=== PATIENT | male | born 2000 | race Caucasian/White ===

== ENCOUNTER 2018-12-12 00:22 | Emergency (ER) | payer BC ==
[2018-12-12] MEDS ORDERED: LORazepam 1 MG TAB PO ONE ×2 (01:09→14:47)
--- NOTE | 2018-12-12 01:09 | EDPHY ---
H & P Stated Complaint: M1 Source: Patient, Family Exam Limitations: Clinical condition - Personal History Current Tetanus Diphtheria and Acellular Pertussis (TDAP): Yes - Medical/Surgical History Hx Asthma: No Hx Chronic Respiratory Disease: No Hx Diabetes: No Hx Cardiac Disease: No Hx Renal Disease: No Hx Cirrhosis: No Hx Alcoholism: No Hx HIV/AIDS: No Hx Splenectomy or Spleen Trauma: No Other PMH: depression - Social History Smoking Status: Never smoked Time Seen by Provider: 12/12/18 00:31 HPI/ROS: HPI: This is a 17-year-old male who presents with Chief Complaint: Depression, paranoia, delusions Location: psych Quality: Depression, paranoia, delusions Duration: Unknown Signs and Symptoms: no auditory hallucinations, + visual hallucinations, no suicidal ideation with a plan, no homicidal ideation, + paranoia Timing: Acute on chronic Severity: Moderate to severe Context: Patient has a history of depression, attention deficit hyperactivity disorder, takes Vyvanse, presents accompanied by his friends who are concerned with patient's erratic behavior. Patient drove down from [place] to [place] and stayed with his friends yesterday evening. He reports that he has not slept in "sometime." He endorses racing thoughts, paranoia, visual hallucination of people chasing him with guns. He reports that he has acromion allergy major and understands "help people work." His father is a physician. He reports that he was depressed in high school as a sophomore and "spent some time in a mental health hospital." Patient reports that he has difficulty forming his thoughts and expressing them. He feels very paranoid. He is very self critical of himself. He is not doing well in college. Modifying Factors: None Comment: ROS: A comprehensive 10 system review of systems is otherwise negative aside from elements mentioned in the history of present illness. MEDICAL/SURGICAL/SOCIAL HISTORY: Medical history: Depression, attention deficit hyperactivity disorder Surgical history: Denies Social history: Student at [employer]. Drinks alcohol socially. Uses marijuana. Family history noncontributory. CONSTITUTIONAL: Well-developed, well-nourished, teenage white male, awake and alert, no obvious distress HEENT: Atraumatic and normocephalic, PERRL, EOMI. Nares patent; no rhinorrhea; no nasal mucosal edema. Tympanic membranes clear. Oropharynx clear, no exudate and moist pink mucosa. Airway patent. No lymphadenopathy. No meningismus. Cardiovascular: Normal S1/S2, regular rate, regular rhythm, without murmur rub or gallop. PULMONARY/CHEST: Symmetrical and nontender. Clear to auscultation bilaterally. Good air movement. No accessory muscle usage. ABDOMEN: Soft, nondistended, nontender, no rebound, no guarding, no peritoneal signs, no masses or organomegaly. No CVAT. EXTREMITIES: 2/2 pulses, strength 5/5, no deformities, no clubbing, no cyanosis or edema. NEUROLOGICAL: no focal neuro deficits. GCS 15. Pressured speech. SKIN: Warm and dry, no erythema. no rash. Good capillary refill. PSYCH: Poor eye contact, + flight of ideas, tangential disorganized thought process, fair insight and judgment, no auditory hallucinations, + visual hallucinations, no suicidal ideation with a plan, no homicidal ideation, + paranoia (Brenda Salguero) Constitutional: Initial Vital Signs Temperature (C) 37.2 C 12/12/18 00:31 Heart Rate 72 12/12/18 00:31 Respiratory Rate 16 12/12/18 00:31 Blood Pressure 155/81 H 12/12/18 00:31 O2 Sat (%) 98 12/12/18 00:31 O2 Delivery Mode Room Air Allergies/Adverse Reactions: No Known Allergies Allergy (Unverified 12/12/18 00:31) Home Medications: Medication Instructions Recorded Zoloft 12/12/18 Medical Decision Making ED Course/Re-evaluation: Vital signs reviewed and stable upon arrival. Agree with M1 hold as patient is gravely disabled. Patient is presenting with delusions and hallucinations. Concern for psychosis versus manic episode bipolar disorder versus new diagnosis of schizoaffective disorder. Labs and UDS ordered. Given p.o. Ativan 1 mg. 0120: End of shift. Signed over to Dr. Bagley pending medical clearance, mental health evaluation and final disposition. This patient was seen under the supervision of my secondary supervising physician. I evaluated care for this patient with attending. Discussed this patient with Dr. Bagley. (Brenda Salguero) Differential Diagnosis: Differential diagnosis includes but is not limited to major depression, anxiety disorder, schizophrenia, bipolar disorder, intoxicant use, suicidal ideation, psychosis, poppy. (Brenda Salguero) Other Provider: 0125 Care assumed from KWESI Salguero pending mental health evaluation. [address] Wong pending mental health evaluation. No issues during my care this patient overnight. (Owen Bagley) 7:00 a.m.-I assumed care of this patient at shift change. He is on an M1 hold for acute poppy. Plan for mental health evaluation this morning. 11:00 a.m.-seen by mental health and felt appropriate for inpatient mental health placement for manic episode. 1450: accepted to [facility] by Dr. Graham. EMTALA completed by me. (Roxann Wong) - Data Points Laboratory Results: Laboratory Results 12/12/18 00:38 12/12/18 00:38 Medications Given: Discontinued Medications Lorazepam (Ativan) 1 mg PO EDNOW ONE Stop: 12/12/18 01:10 Last Admin: 12/12/18 01:19 Dose: 1 mg Departure - Departure Clinical Impression: Delusions, Paranoia (psychosis) Condition: Fair Referrals: JAVIER HUBER [Other] - As per Instructions
[2018-12-12 01:15] LABS: PLATELET COUNT 190 10^3/uL (150-400)
--- NOTE | 2018-12-12 13:03 | ASMTTLCEVL ---
TLC Evaluation - Basic Information Evaluation Start Date and 12/12/2018 10:00 AM Time Hospital Status Answers: M1 Hold 72-hr M1 Hold Start Date 12/12/2018 12:01 PM and Time Patient statement Notes: My friends got scared so they called police. When asked why friends were scared pt stated that he opened up and my friends arent used to that. Xin only slept for about 2 hours over the past 4-5 days." Narrative Notes: Pt is a 17 year old, single, male who presented with a hx of depression, ADHD accompanied with his friends who were concerned with pt.s erratic behavior. Pt drove down from [place] to [place] and stayed with friend yesterday evening. Pt had reported he has not slept in sometime. Pt had endorsed racing thoughts, paranoia, and visual hallucinations of people chasing him with guns. Pt had reported he started experiencing depression in high school as a sophomore and spent some time in a mental health hospital. Per ED report pt appeared paranoid, self-critical and had reported he is not doing well in college. Per ED report pt. presented with poor eye contact, flight of ideas, tangential, disorganized thought process, fair insight and judgment, no auditory hallucinations, positive visual hallucinations, no SI, no HI but paranoid. Pt was placed on a M1 hold by ED Physician due to symptoms of psychosis. Pts utox was positive for Amphetamines, (pt is prescribed Vyvanse) and marijuana. He BAL was less than 1. Father reported pt is a [employer] student who is currently on academic probation. Pt has a hx of depression and anxiety starting around the age of 12 resulting in a hospitalization at [facility] in [facility]. Pt has been prescribed Vyvanse and Zoloft. Pt has not been compliant with taking his Zoloft and sporadically was taking his Vyvanse but pt reported over the past few weeks he has been taking Vyvanse on a daily basis as prescribed. Father reported pt appeared to be doing fine over winter break when he returned home. He did seem a little hyped but no significant problems were observed. Pt was set up with a therapist at upon his return and was seen by his jail Psychiatrist in [facility], Dr Cooper Smith before his return to college in mid-October. Father reported they had spoken with pt on Saturday of this week and were concerned about his communication. Pt had a test scheduled on but instead of taking the test he drove to [place] to see his friends. Last night when father saw pt in the ED he was observed as expressing rambling thoughts, varied mood, and irrational thoughts. Pt had reported last semester at [employer] he was using marijuana on a daily basis. Diagnosis History Notes: Pt was diagnosed with depression and anxiety at the age of 12. Prior suicide attempts Notes: Pt denied any prior suicide attempts. Prior hospitalizations Notes: Pt was hospitalized for 7-10 days at the age of 12 for depression and SI Treatment Responses Notes: Pt stated he did not feel the Zoloft medication was of any benefit to his symptoms. History of violence Notes: Pt has no hx of reported violence. Therapist: New therapist at [employer] seen 2 times this semester Psychiatrist: Pt has been seeing Psychiatrist Dr Cooper Smith since his teens. Pt was last seen by Psychiatrist in Oct. prior to returning to [employer] Medications (name, dosage, route, freq uency) Notes: Pt is prescribed 40 mg of Vyvanse daily. He had also been prescribed Zoloft in the past but pt stopped taking Zoloft since he did not feel this medication was helping him. Allergies/Reaction Notes: No known allergies. Sleep Notes: Pt reported he has not slept more than 2-3 hours over the past 4-5 nights. Appetite Notes: Pt reported with taking Vyvanse it has reduced his appetite. Pt is not aware of any weight loss. Medical/Surgical history Notes: No report of any medical concerns were reported. Substance use history (frequency, intensity, his tory, duration) Notes: Pt reported he tried marijuana for the 1st time at age 12. He had his 1st drink at the age of 14. Pt denied a regular pattern of problematic drinking reporting he only drinks a few drinks per drinking occasion about 1 day a week. Pt stated he started using marijuana on a daily basis last semester. The past few months he has been using marijuana a few times a week. Pt denied any hx of other drug use. Family composition Notes: Pt has a 15 year old sister who lives with his parents in [facility]. Need for family Answers: Yes participation in patient's care Family psychiatric/substance abuse history Notes: There is a family hx of schizophrenia, a maternal great aunt. It was also reported pt.s mother struggled with bulimia earlier in her life along with depression and anxiety. 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 There was no report of any hx of concussions. Pt was not diagnosed with ADD until after high school. Abuse concerns Answers: None Marital status/children Notes: Pt is single with no children. Living situation Notes: Pt lives with a roommate in an apt off campus of [employer] [facility]. Sexual history/orientation Notes: Pt identifies as a heterosexual. Peer support/family strengths Notes: Pt was described as a social kid who has a lot of friends. He has several friends from his high school who are attending in [place]. Education level/history Notes: Pt is a sophomore at [employer] who has been placed on academic probation. Work history Notes: Pt has always worked since high school and on breaks. 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 Notes: No hx Legal Notes: Pt gave no hx of legal problems Latter-Day/Spiritual Notes: Pt was raised as a Restorationism but does not regularly participate in formal activities. Leisure Notes: Pt is physically active and was involved in a variety of sports throughout high school. He played golf, basketball and baseball throughout high school. Collateral Notes: Collateral inform was obtained from pt.'s father. See narrative above. Father was in agreement due to concerns of pt.'s behavior and decline in [facility] Patient's strengths Answers: Athletic (Please select at least TWO strengths): Good Friend to Others Intelligent Supportive Family Willingness TLC Evaluation - Mental Status Exam Appearance: Answers: Appropriate Eye Contact: Answers: Intermittent Mood: Answers: Euthymic Affect: Answers: Apathetic Apprehensive Congruent w/ Mood Indifferent Subdued Behavior: Answers: Cooperative Fatigued Impulsive Speech: Answers: Clear Coherent Thought Process: Answers: Oriented Racing Thoughts Insight: Answers: Fair Judgement: Answers: Poor Manic Signs/Symptoms Answers: Distractibility Euphoria Grandiosity Impulsivity Mood Swings Racing Thoughts Depression Answers: Difficulty Concentrating Signs/Symptoms: Diminished Interest Psychomotor Agitation Hallucinations: Answers: Visual Current Stage of Change Answers: Precontemplation Pt reported to have Answers: No suicidal/self-injuring ideation/behavior? Pt reported to be making Answers: No suicidal/self-injuring threats? Pt reported to have Answers: No aggression/assault ideation/behavior? Pt reported to be making Answers: No aggression/assault threats? Pt exhibits inability to Answers: Yes care for self/grave disability? History of Answers: Yes suicidal/self-injuring ideation, behavior, or threats? History of Answers: No aggressive/assaultive ideation, behavior, or threats? History of serious Answers: No physical harm to self/others while in treatment setting? TLC Evaluation - Suicide/Homicide Risk Suicide Risk Factors: Answers: < 20 or > 40 Years of Age Bipolar Disorder Calm After Agitated Depression Global Insomnia Impulsivity Rapid Mood Shifts School Difficulties None Current Suicidal Answers: No Ideation? Current Suicidal Ideation Answers: No in the Past 48 Hours? Current Suicidal Ideation Answers: No in the Past Month? Suicide Internal Answers: Other Notes: Pt denied SI Protective Factors: Suicide External Answers: Other Notes: Pt denies SI Protective Factors: Ranking of patient's Answers: Low suicidal risk: Ranking of patient's Answers: Low homicidal risk: TLC Evaluation - Wrap-up BDI Total Score: 39 BDI Question #2 Score: 0 BDI Question #9 Score: 1 BSS Total Score: 0 AXIS I Diagnosis (include DSM-V and ICD-10 codes), must also be entered in [employer]inode, which is the source of truth. Notes: R/O Bipolar I Disorder, current or most recent episode hypomanic 296.40 (F31.0) Persistent Depressive Disorder (Dysthymia) 300.4 (F34.1) Cannabis Use Disorder, moderate 304.30 (F12.20) Evaluation End Date and 12/12/2018 12:50 PM Time (HH:MM): Date Signed: 12/12/2018 01:03 PM Electronically Signed By:Diamond George
[2018-12-12 14:52] VITALS: BP 117/73
--- NOTE | 2018-12-12 14:58 | ASMTTCLDSP ---
TLC Discharge Disposition Disposition: Answers: Transfer Disposition Notes: Notes: In consultation with [facility] ED physician, Mireya Wong it was concurred that pt appears to meet 27-65 criteria requiring psychiatric hospitalization as pt appears to be at risk of harm to others/gravely disabled due to a mental illness condition. Pt was read the Patient Rights and Responsibilities Statement on (12/11/2018), original placed on chart, and was given photocopy of Rights. Pt signed the Patient Rights. Discharge Concerns/Recommendations: Notes: transfert to [facility] Type of Hold: Answers: M1/72-hour Hold Hold initiated by: Answers: ED Physician For Transfers, Accepting [facility] Facility: For Transfers, Accepting Franco [facility] Psychiatrist: Date Signed: 12/12/2018 02:57 PM Electronically Signed By:Diamond George
== END 2018-12-12 17:12 ==
DX: F22 Delusional disorders (principal); F32.9 Major depressive disorder, single episode, unspecified; F90.9 Attention-deficit hyperactivity disorder, unspecified type
CPT/HCPCS: 80305; G0480